=== PATIENT | male | born 1990 | race Hispanic/Latino ===

== ENCOUNTER 2017-08-30 08:46 | Emergency (ER) | payer OTHER ==
[~2017-08-30] VITALS: Ht 172.7 cm; Wt 86.4 kg
[2017-08-30] MEDS ORDERED: VENTAER IN (09:01)
[2017-08-30] MEDS ORDERED: KETOROLAC 60 MG/2 ML VIAL (J1885) IM ONE (09:15)
[2017-08-30] MEDS ORDERED: CYCL10TA PO (09:57)
[2017-08-30 10:11] VITALS: BP 142/78
== END 2017-08-30 10:13 | disposition home or self-care (01) ==
LOC: M ED 08:46
DX: S39.012A Strain of muscle, fascia and tendon of lower back, initial encounter (principal); X58.XXXA Exposure to other specified factors, initial encounter; Y92.89 Other specified places as the place of occurrence of the external cause; Y93.89 Activity, other specified; Y99.9 Unspecified external cause status
CPT/HCPCS: 96372; 99283; J1885